=== PATIENT | male | born 1965 | race Caucasian/White ===

== ENCOUNTER 2016-12-02 17:03 | Emergency (ER) | payer BC, OTHER ==
[2016-12-02 17:24] VITALS: BP 135/74; PULSE 72; RESP 18; TEMP 98.6; O2SAT 95
--- NOTE | 2016-12-02 17:37 | EDPHY ---
H & P Time Seen by Provider: 12/02/16 17:13 HPI/ROS: 51-year-old male presents complaining of right elbow swelling that began last night after good spent most with a moving, and also had played volleyball. He denies fevers or chills. Review of systems General no fever no chills no weakness HEENT no eye pain no eye discharge. No eye redness, no sore throat Respiratory no cough, no shortness of breath Cardiac no chest pain, no peripheral edema GI no abdominal pain, no diarrhea, no constipation, no nausea, no vomiting no flank pain, no hematuria, no dysuria Musculoskeletal no myalgias, Positive joint pain Heme no easy bruising, no easy bleeding Endo no polyuria, no polydipsia Skin positive rashes, no pruritus Neuro no syncope, no dizziness, no headaches Psych is no suicidal ideation, no homicidal ideation Past Medical/Surgical History: noncontributory Social History: alcohol socially, denies drug use Smoking Status: Never smoked Physical Exam: 51-year-old male alert and oriented Alert and oriented in no acute distress nontoxic appearance, afebrile Atraumatic normocephalic Neck no JVD Lungs clear to auscultation, no respiratory distress Heart regular rate and rhythm Extremities no cyanosis clubbing edema Right elbow olecranon bursa swollen minimal tenderness to palpation, erythema no lymphangitic streaks, from , no internal joint involvement Constitutional: Initial Vital Signs Temperature (C) 37.0 C 12/02/16 17:05 Heart Rate 72 12/02/16 17:05 Respiratory Rate 18 12/02/16 17:05 Blood Pressure 135/74 H 12/02/16 17:05 O2 Sat (%) 95 12/02/16 17:05 O2 Delivery Mode Room Air Allergies/Adverse Reactions: Penicillins Allergy (Unknown, Verified 12/02/16 17:20) Unknown Home Medications: Medication Instructions Recorded NK [No Known Home Meds] 12/02/16 Medical Decision Making ED Course/Re-evaluation: patient seen and evaluated for right elbow redness and swelling differential diagnosis considered olecranon bursitis impression olecranon bursitis plan rest ice compression elevation nsaid Departure - Departure Disposition: Home, Routine, Self-Care Clinical Impression: Olecranon bursitis of right elbow Condition: Good Instructions: Elbow Bursitis (ED) Referrals: Kelvin Gilbert PA [Primary Care Provider] - As per Instructions
== END 2016-12-02 17:45 | disposition home or self-care (01) ==
LOC: CED 17:03
DX: M70.21 Olecranon bursitis, right elbow (principal); Y93.68 Activity, volleyball (beach) (court)